=== PATIENT | male | born 1975 | race Caucasian/White ===

== ENCOUNTER 2016-09-13 08:55 | Emergency (ER) | payer OTHER ==
[2016-09-13 09:09] VITALS: BP 128/86
--- NOTE | 2016-09-13 09:28 | UC ---
Throat Pain/Nasal Chaka HPI - HPI Summary HPI Summary: WOKE UP AT 4AM THIS MORNING WITH SENSATION THAT SOMETHING WAS IN HIS THROAT. LOOKED AND FOUND HIS UVULA WAS SWOLLEN. HAD SIMILAR SX 5 YEARS AGO BUT STATES IT WAS WORSE THEN - WORSE PAIN AND MORE SWOLLEN. NO CLEAR DIAGNOSIS THEN. PT DENIES DIFFICULTY SWALLOWING. NO RESPIRATORY INVOLVEMENT. NO FEVER OR URI SX. NO NEW EXPOSURES HE IS AWARE OF. - History of Current Complaint Chief Complaint: UCRespiratory Stated Complaint: THROAT COMPLAINT Time Seen by Provider: 09/13/16 09:19 Hx Obtained From: Patient Onset/Duration: Sudden Onset, Lasting Hours, Still Present Severity: Mild Pain Intensity: 1 Pain Scale Used: 0-10 Numeric Cough: None Associated Signs & Symptoms: Positive: Negative - Allergies/Home Medications Allergies/Adverse Reactions: Allergies Allergy/AdvReac Type Severity Reaction Status Date / Time No Known Allergies Allergy Verified 11/15/12 16:42 PMH/Surg Hx/FS Hx/Imm Hx Previously Healthy: Yes Endocrine History Of: Denies: Diabetes, Thyroid Disease Cardiovascular History Of: Denies: Cardiac Disorders, Hypertension Respiratory History Of: Denies: COPD, Asthma GI/ History Of: Denies: Ulcer - Surgical History Surgical History: Yes Surgery Procedure, Year, and Place: wisdom teeth - Family History Known Family History: Negative: Hypertension - Social History Alcohol Use: Occasionally Substance Use Type: None Smoking Status (MU): Light Every Day Tobacco Smoker Type: Cigarettes Amount Used/How Often: 5-10 cigs per day Have You Smoked in the Last Year: Yes Review of Systems Constitutional: Negative ENT: Other - SWOLLEN UVULA Respiratory: Negative Cardiovascular: Negative Gastrointestinal: Negative All Other Systems Reviewed And Are Negative: Yes Physical Exam Triage Information Reviewed: Yes Appearance: Well-Appearing, No Pain Distress, Well-Nourished Vital Signs: Initial Vital Signs Temp 97.6 F 09/13/16 09:04 Pulse 85 09/13/16 09:04 Resp 18 09/13/16 09:04 BP 128/86 09/13/16 09:04 Pulse Ox 98 09/13/16 09:04 Vital Signs Reviewed: Yes Eyes: Positive: Conjunctiva Clear ENT: Positive: Hearing grossly normal, TMs normal, Other: - UVULA EDEMATOUS. LEFT TONSIL STONE Neck: Positive: Supple, Nontender, No Lymphadenopathy Respiratory Exam: Normal Cardiovascular Exam: Normal Abdomen Description: Positive: Soft Musculoskeletal: Positive: No Edema Neurological: Positive: Alert Psychological: Positive: Age Appropriate Behavior Skin: Negative: rashes Throat Pain/Nasal Course/Dx - Course Course Of Treatment: TONSIL STONE REMOVED USING QTIP. NO CLEAR CUASE OF SWOLLEN UVULA. TX WITH PREDNISONE. STAY WELL HYDRATED. TO ER IF WORSE. TO ENT IF NO CHANGE. TO HEAD INSPECTOR AND CENTER MARKER IF BECOMES RECURRENT. - Differential Dx/Diagnosis Provider Diagnoses: SWOLLEN UVULA Discharge - Discharge Plan Condition: Stable Disposition: HOME Prescriptions: predniSONE TAB* [Deltasone TAB*] 50 mg PO DAILY #5 tab Patient Education Materials: Uvulitis (ED) Referrals: Shantal Oneil MD [Primary Care Provider] - If Needed Additional Instructions: UNCLEAR CAUSE OF THE SWELLING IN YOUR UVULA. NO SIGN OF INFECTION. WILL TREAT WITH PREDNISONE. IF NO IMPROVEMENT FOLLOW-UP WITH ENT. IF SYMPTOMS WORSEN GO TO THE ER. IF SYMPTOMS RESOLVE BUT BECOME RECURRENT WOULD CONSIDER EVALUATION BY HEAD INSPECTOR AND CENTER MARKER. YOU HAD A TONSIL STONE IN YOUR LEFT TONSIL. YOUR TONSILLAR CRYPTS ARE RELATIVELY DEEP. BE SURE TO STAY WELL HYDRATED AND RINSE WITH WATER AFTER EATING. [facility] [place] [facility] [phone] [facility] Address: [facility] [address], [place] [address] [facility] [address] [place] [address] [address], [address] [place], [place] [address]
== END 2016-09-13 09:39 | disposition home or self-care (01) ==
LOC: UCEAST 08:55
DX: J39.8 Other specified diseases of upper respiratory tract (principal); F17.210 Nicotine dependence, cigarettes, uncomplicated
CPT/HCPCS: 99202; G0463

== ENCOUNTER 2017-06-09 21:52 | Emergency (ER) | payer OTHER ==
[2017-06-09 22:45] VITALS: BP 131/82
[2017-06-09] MEDS ORDERED: HYDROcodone/ACETAMIN 5-325 MG* 1 TAB PO ONE (23:10)
[2017-06-09] MEDS ORDERED: Clindamycin CAP* 150 MG PO ONE (23:10)
--- NOTE | 2017-06-09 23:20 | UC ---
General HPI - HPI Summary HPI Summary: 41M no pmh pw L sided lower mandibular pain for 1 day. saw dentist, did not receive any treatment. pt says pain is associated with Lower right molar tooth pain where he has had prior dental work. no fever, nausea, vomiting, or dysphagia. no prior episodes. no worsening factors, relieved with motrin at home. - History of Current Complaint Chief Complaint: UCSkin Stated Complaint: SORE IN MOUTH Pain Intensity: 5 - Allergy/Home Medications Allergies/Adverse Reactions: Allergies Allergy/AdvReac Type Severity Reaction Status Date / Time No Known Allergies Allergy Verified 06/09/17 22:38 Home Medications: Home Medications Ibuprofen TAB* [Advil TAB*] 200 mg PO Q6H PRN 06/09/17 [History Confirmed ] PMH/Surg Hx/FS Hx/Imm Hx - Surgical History Surgical History: Yes Surgery Procedure, Year, and Place: wisdom teeth - Family History Known Family History: Negative: Hypertension - Social History Alcohol Use: None Substance Use Type: None Smoking Status (MU): Light Every Day Tobacco Smoker Type: Cigarettes Amount Used/How Often: 5cigs per day Have You Smoked in the Last Year: Yes Review of Systems Constitutional: Negative Skin: Negative ENT: Dental Pain Respiratory: Negative Cardiovascular: Negative Gastrointestinal: Negative Neurological: Negative All Other Systems Reviewed And Are Negative: Yes Physical Exam Triage Information Reviewed: Yes Vital Signs: Initial Vital Signs Temp 37.3 C 06/09/17 22:39 Pulse 85 06/09/17 22:39 Resp 18 06/09/17 22:39 BP 131/82 06/09/17 22:39 Pulse Ox 97 06/09/17 22:39 - Additional Comments gen: no acute distress heent: mild tenderness to external lower mandible area on R. mild soft tissue swelling. no brawny edema, no sublingual swelling. no tongue swelling. neck: normal rom, no tenderness. no lymphadenopathy Course/Dx - Course Course Of Treatment: possible sialolithiasis vs dental pain. no evidence of Bry's. No acute distress, tolerating PO normally. instructed to fu with dentist and ent physician. agrees to and understnads dc instructions. started on clindamycin adn pain control. - Differential Dx - Multi-Symptom Provider Diagnoses: dental pain, sialolithiasis Discharge - Discharge Plan Condition: Stable Disposition: HOME Prescriptions: Clindamycin HCl [Clindamycin 150 MG CAP*] 150 mg PO QID #28 cap oxyCODONE/Acetamin 5/325 MG* [Percocet 5/325 TAB*] 1 tab PO Q6H PRN #10 tab MDD 4 tabs PRN Reason: Pain - Moderate To Severe Patient Education Materials: Toothache (ED), Parotid Duct Obstruction (ED), Sialoadenitis (ED) Referrals: Shantal Oneil MD [Primary Care Provider] - MENDEZ GOLDEN [Medical Doctor] - Thad Sheikh [Medical Doctor] - Seferino Torrez MD [Medical Doctor] - Additional Instructions: PLEASE TAKE MEDICATIONS DIRECTED PLEASE MAKE AN APPOINTMENT WITH AN ENT PHYSICIAN AND DENTIST TO BE SEEN WITHIN 1 -2 WEEKS PLEASE SEEK MEDICAL ATTENTION IMMEDIATELY IF YOU HAVE ANY WORSENING OR CONCERNING SYMPTOMS PLEASE MAKE AN APPOINTMENT TO BE SEEN BY YOUR PRIMARY CARE DOCTOR WITHIN 1 WEEK
== END 2017-06-09 23:15 | disposition home or self-care (01) ==
LOC: UCEAST 21:52
DX: K08.89 Other specified disorders of teeth and supporting structures (principal); K11.5 Sialolithiasis; Z72.0 Tobacco use
CPT/HCPCS: 99212; A9270-GY; G0463

== ENCOUNTER 2017-07-19 07:15 | Emergency (ER) | payer OTHER ==
[2017-07-19 07:22] VITALS: BP 121/82
[2017-07-19] MEDS ORDERED: predniSONE TAB* 20 MG PO ONE (07:40)
--- NOTE | 2017-07-19 07:42 | UC ---
General HPI - HPI Summary HPI Summary: c/o of recurrent swellling of the uvula, third episode so far within the past 4 years, last episode sometime in 2017. Denies wheezing, SOB, problems swallowing , snoring. He states he smokes about 5 cigarettes per day. Denies history of seasonal allergies, asthma or chronic disease. Has taken prednisone in the past with resolution - History of Current Complaint Chief Complaint: UCRespiratory Stated Complaint: SORE THROAT Time Seen by Provider: 07/19/17 07:22 Pain Intensity: 3 - Allergy/Home Medications Allergies/Adverse Reactions: Allergies Allergy/AdvReac Type Severity Reaction Status Date / Time No Known Allergies Allergy Verified 07/19/17 07:22 PMH/Surg Hx/FS Hx/Imm Hx Previously Healthy: Yes - Surgical History Surgical History: Yes Surgery Procedure, Year, and Place: wisdom teeth - Family History Known Family History: Negative: Hypertension - Social History Alcohol Use: Rare Substance Use Type: None Smoking Status (MU): Light Every Day Tobacco Smoker Type: Cigarettes Amount Used/How Often: 5-8 cigs per day Have You Smoked in the Last Year: Yes Review of Systems Constitutional: Negative ENT: Sore Throat Respiratory: Negative All Other Systems Reviewed And Are Negative: Yes Physical Exam Triage Information Reviewed: Yes Appearance: Well-Appearing, Well-Nourished Vital Signs: Initial Vital Signs Temp 98.5 F 07/19/17 07:18 Pulse 92 07/19/17 07:18 Resp 16 07/19/17 07:18 BP 121/82 07/19/17 07:18 Pulse Ox 99 07/19/17 07:18 Vital Signs Reviewed: Yes Eyes: Positive: Conjunctiva Clear ENT: Positive: Hearing grossly normal, Pharyngeal erythema - prominent uvula in midline with erythema and swelling. Airway patent, no stridor, TMs normal, Uvula midline Neck: Positive: Supple, Nontender, No Lymphadenopathy Respiratory: Positive: Chest non-tender, Lungs clear, Normal breath sounds, No respiratory distress Cardiovascular: Positive: RRR, No Murmur, Pulses Normal, Brisk Capillary Refill Abdomen Description: Positive: Nontender Bowel Sounds: Positive: Present Course/Dx - Differential Dx - Multi-Symptom Provider Diagnoses: uvular angioedema Discharge - Discharge Plan Condition: Stable Disposition: HOME Patient Education Materials: Angioedema (ED) Referrals: Shantal Oneil MD [Primary Care Provider] - Will Rose MD [Medical Doctor] -
== END 2017-07-19 07:48 | disposition home or self-care (01) ==
LOC: UCEAST 07:15
DX: T78.3XXA Angioneurotic edema, initial encounter (principal); F17.210 Nicotine dependence, cigarettes, uncomplicated
CPT/HCPCS: 87651; 99212; G0463; J7512